=== PATIENT | female | born 2000 | race Two or more races ===

== ENCOUNTER 2023-11-23 11:52 | Emergency (ER) | payer OTHER ==
[~2023-11-23] VITALS: Ht 152.4 cm; Wt 60.8 kg
[2023-11-23] MEDS ORDERED: PRENA1 CHEW TA1.4 MG PO (12:42)
[2023-11-23] MEDS ORDERED: PENICILLIN G BENZATHINE LA 1.2 MMU/2 ML DISP.SYRIN IM ONE (13:00)
[2023-11-23] MEDS ORDERED: ACETAMINOPHEN 500 MG GEL..CAP PO ONE (13:45)
[2023-11-23] MEDS ORDERED: PROMETHAZINE HCL 50 MG/ML AMPUL IM ONE (13:45)
== END 2023-11-23 17:33 | disposition home or self-care (01) ==
LOC: ER 11:52
DX: O02.1 Missed abortion (principal); K29.70 Gastritis, unspecified, without bleeding